=== PATIENT | male | born 1985 | race Caucasian/White ===

== ENCOUNTER 2017-02-20 16:46 | Emergency (ER) | payer BC, OTHER ==
[~2017-02-20] VITALS: Ht 162.6 cm; Wt 68.0 kg
[2017-02-20 16:47] VITALS: BP 136/80
[2017-02-20] MEDS ORDERED: ACYC1CAP8 PO (17:13)
[2017-02-20] MEDS ORDERED: NORC1TAB4 PO (17:13)
== END 2017-02-20 17:57 | disposition home or self-care (01) ==
LOC: M ED 17:23
DX: B02.9 Zoster without complications (principal); Z86.19 Personal history of other infectious and parasitic diseases; F17.200 Nicotine dependence, unspecified, uncomplicated

== ENCOUNTER → 2017-03-18 | Outpatient (REF) | payer BC ==
[~2017-03-18] MED LIST: ACYC1CAP8 PO; NORC1TAB4 PO
[2017-03-18 19:02] LABS: ALBUMIN 4.1 GM/DL (3.2-5.2); ALBUMIN/GLOBULIN RATIO 1.41 (1.00-1.93); ALKALINE PHOSPHATASE 63 U/L (45-117); ALT/SGPT 23 U/L (12-78); ANION GAP 3 MEQ/L (8-16); AST/SGOT 15 U/L (15-37); BILIRUBIN,TOTAL 0.6 MG/DL (0.2-1.0); BLOOD UREA NITROGEN 14 MG/DL (7-18); CALCIUM LEVEL 8.8 MG/DL (8.5-10.1); CARBON DIOXIDE LEVEL 30 MEQ/L (21-32); CHLORIDE LEVEL 107 MEQ/L (98-107); CHOLESTEROL LEVEL 158 MG/DL (<200); GLOMERULAR FILTRATION RATE > 60.0 (>60); GLUCOSE, FASTING 95 MG/DL (70-105); POTASSIUM SERUM 4.9 MEQ/L (3.5-5.1); SODIUM LEVEL 140 MEQ/L (136-145); TRIGLYCERIDES LEVEL 34 MG/DL (<150)
[2017-03-18 19:43] LABS: MEAN CORPUSCULAR HEMOGLOBIN 32.1 pg (27.0-33.0); MEAN CORPUSCULAR HGB CONC 33.8 g/dl (32.0-36.5); RED CELL DISTRIBUTION WIDTH 11.7 % (11.5-14.5); WHITE BLOOD COUNT 5.8 K/mm3 (4.0-10.0)
== END ==
LOC: M SFHCLERA 11:44
PROVIDERS: ATTEND Physician Assistant
DX: Z00.00 Encounter for general adult medical examination without abnormal findings (principal); Z13.220 Encounter for screening for lipoid disorders

== ENCOUNTER → 2020-11-29 | Outpatient (CLI) | payer SELFPAY ==
[~2020-11-29] MED LIST changes: -ACYC1CAP8 PO; +ACYC200C8 PO; -NORC1TAB4 PO; +NORC1TAB7 PO
== END ==
LOC: M LABSMTC 13:58
PROVIDERS: ATTEND Pediatrics
DX: Z20.822 Contact with and (suspected) exposure to COVID-19 (principal)

== ENCOUNTER → 2022-08-05 | Outpatient (CLI) | payer BC | LOC: M PLAIMG 13:23 | PROVIDERS: ATTEND Family Medicine | DX: M54.50 Low back pain, unspecified (principal) ==